=== PATIENT | male | born 1990 | race Two or more races ===

== ENCOUNTER 2018-10-20 22:14 | Emergency (ER) | payer MEDICAID ==
[~2018-10-20] VITALS: Ht 185.4 cm; Wt 81.6 kg
[2018-10-20] MEDS ORDERED: MORPHINE SULFATE 4 MG/ML SYR/VIAL IV ONE (22:30)
[2018-10-20] MEDS ORDERED: TETANUS IMMUNE GLOBULIN 250 UNIT/ML SYRG IM ONE (22:30)
[2018-10-20] MEDS ORDERED: cefTRIAXone 1GM/50ML D5W 50 ML IV ONE (22:30)
[2018-10-20] MEDS ORDERED: ONDANSETRON HCL 4 MG/2 ML VIAL IV ONE (22:30)
[2018-10-21] MEDS ORDERED: LIDOCAINE W/ EPINEPHRINE 1% 20ML VIAL ONE (00:25)
[2018-10-21] MEDS ORDERED: LIDOCAINE W/ EPINEPHRINE 1% 20ML VIAL ID ONE (00:45)
[2018-10-21] MEDS ORDERED: NEOMYCIN-BACITRACIN-POLYM UNITDOSE PKG TOP OINT TOP ONE (01:00)
[2018-10-21 01:40] VITALS: BP 143/85
== END 2018-10-21 02:15 | disposition home or self-care (01) ==
LOC: ER 22:22
DX: S01.511A Laceration without foreign body of lip, initial encounter (principal); W50.0XXA Accidental hit or strike by another person, initial encounter; Y93.66 Activity, soccer; Y99.8 Other external cause status; Y92.89 Other specified places as the place of occurrence of the external cause
CPT/HCPCS: 12013; 70486; 96365; 96375; 99284; J0696; J2270; J2405